=== PATIENT | female | born 1985 | race Caucasian/White ===

== ENCOUNTER 2019-08-22 19:21 | Inpatient (IN) | payer MEDICAID ==
[~2019-08-22] VITALS: Ht 157.5 cm; Wt 68.0 kg
[2019-08-22 19:28] VITALS: BP 248/169
--- NOTE | 2019-08-22 19:32 | NUR ---
PT TAKEN TO BED 3
--- NOTE | 2019-08-22 19:38 | NUR ---
ER EVALUATING PATIENT
[2019-08-22] MEDS ORDERED: MORPHINE SULFATE 2 MG/ML SYR IVP ONE (19:45)
[2019-08-22] MEDS ORDERED: cloNIDine 0.1 MG TAB PO ONE ×2 (19:45→22:50)
[2019-08-22] MEDS ORDERED: NACL 0.9% 1,000 ML IV ONE (19:45)
--- NOTE | 2019-08-22 19:50 | NUR ---
33 Y/O FEMALE PAIN TO LEFT SIDE SINCE THIS AM, PT DENIES TRAUMA OR INJURY, STATES NO BLEEDING OR D/C. PATIENT STATES THAT SHE HAD JAW PAIN SINCE THIS MORNING AND STATES " I THINK THAT IT COULD BE FROM A BROKEN TOOTH". PAIN IS A 10/10 ACUTE PAIN. PATIENT EXHIBITS FACIAL GRIMACING. BLOOD PRESSURE IS 248/169. ER MD AWARE OF STATUS. PATIENT PLACED ON MONITOR. SIDE RAILSX2/ PMH HTN NKDA RX:NONE
--- NOTE | 2019-08-22 19:54 | NUR ---
LAB AT BEDSIDE.
--- NOTE | 2019-08-22 19:59 | NUR ---
Blood drawn by myself and handed to corporate account executive.
--- NOTE | 2019-08-22 20:00 | NUR ---
certified ophthalmic technologist at bedside.
[2019-08-22 20:05] LABS: BASOPHILS # (AUTO) 0.1 K/uL (0.00-0.22); BASOPHILS % (AUTO) 0.7 % (0.0-2.0); EOSINOPHILS # (AUTO) 0.1 K/uL (0-0.4); EOSINOPHILS % (AUTO) 0.9 % (0.0-4.0); HEMATOCRIT 46.1 % (36-48); HEMOGLOBIN 15.3 g/dL (12.0-16.0); LYMPHOCYTES # (AUTO) 1.5 K/uL (2.5-16.5); LYMPHOCYTES % (AUTO) 15.5 % (20.5-51.1); MEAN CORPUSCULAR HEMOGLOBIN 27 pg (27-31); MEAN CORPUSCULAR HGB CONC 33 g/dL (33-37); MEAN CORPUSCULAR VOLUME 81.8 fL (80-94); MONOCYTES # (AUTO) 0.5 K/uL (0.8-1.0); MONOCYTES % (AUTO) 4.8 % (1.7-9.3); NEUTROPHILS # (AUTO) 7.7 K/uL (1.8-7.7); NEUTROPHILS % (AUTO) 78.1 % (42.2-75.2); PLATELET COUNT (AUTO) 345 K/uL (140-450); RED BLOOD CELL COUNT(AUTO) 5.63 MIL/uL (4.20-5.40); RED CELL DISTRIBUTION WIDTH 14.5 % (11.6-13.7); WHITE BLOOD COUNT (AUTO) 9.9 K/uL (4.8-10.8)
--- NOTE | 2019-08-22 20:29 | NUR ---
Marguerite deutsch in [facility] - 08/22/19 at 2030 by KINSEY PATIENT IS SLEEPING AT THIS TIME. FRIEND IS AT [facility].
--- NOTE | 2019-08-22 20:30 | NUR ---
PATIENT IS SLEEPING AT THIS TIME. FRIEND IS AT BEDSIDE.
[2019-08-22 20:57] LABS: ALBUMIN 4.2 g/dL (3.4-5.0); ANION GAP 12.4 (8-16); CARBON DIOXIDE 30.3 mmol/L (21-32); CREATININE 0.8 mg/dL (0.6-1.3); TOTAL BILIRUBIN 0.3 mg/dL (0.0-1.0)
[2019-08-22 20:58] LABS: POTASSIUM 2.7 mmol/L (3.5-5.1)
[2019-08-22] MEDS ORDERED: METOPROLOL 5 MG/5 ML VIAL IVP ONE (21:15)
[2019-08-22] MEDS ORDERED: ASPIRIN 81 MG TAB.CHEW PO ONE (21:15)
[2019-08-22] MEDS ORDERED: POTASSIUM CHLORIDE 10 MEQ TABER PO ONE (21:15)
[2019-08-22] MEDS ORDERED: NACL 0.9% 1,000 ML IV SCH (21:19)
[2019-08-22] MEDS ORDERED: HYDROcodone/APAP 5/325 MG 1 TAB TAB PO PRN (21:20)
[2019-08-22] MEDS ORDERED: DOCUSATE SODIUM 100 MG GELCAP PO PRN (21:20)
[2019-08-22] MEDS ORDERED: ONDANSETRON 4 MG/2 ML VIAL IM/IVP PRN (21:20)
[2019-08-22] MEDS ORDERED: ZOLPIDEM 5 MG TAB PO PRN (21:20)
[2019-08-22] MEDS ORDERED: LORazepam 2 MG/ML VIAL IM/IVP PRN (21:20)
[2019-08-22] MEDS ORDERED: ACETAMINOPHEN 325 MG TAB PO PRN (21:20)
[2019-08-22] MEDS ORDERED: MORPHINE SULFATE 2 MG/ML SYR IVP PRN (21:20)
[2019-08-22] MEDS ORDERED: hydrALAZINE 20 MG/ML VIAL IVP ONE ×2 (21:45→23:35)
--- NOTE | 2019-08-22 21:49 | NUR ---
PATIENT TAKEN TO CT.
--- NOTE | 2019-08-22 21:49 | NUR ---
PT TAKEN TO CT
[2019-08-22] MEDS ORDERED: NITROGLYCERIN 0.4 MG TAB SL PRN (21:50)
[2019-08-22 21:53] LABS: PROTHROMBIN TIME 8.9 secs (10.8-13.4)
[2019-08-22 21:54] LABS: CHOL/HDL RATIO 3.3 (1-4.5); MAGNESIUM 1.8 mg/dL (1.8-2.4); PHOSPHORUS 2.1 mg/dL (2.5-4.9); THYROID STIMULATING HORMONE 0.49 uIU/mL (0.34-3.74)
--- NOTE | 2019-08-22 22:04 | NUR ---
Dr. Patel examining patient.
--- NOTE | 2019-08-22 22:08 | NUR ---
PULLED FROM FORREST APRESOLINE 20MG/1ML. ADMINISTERED APRESOLINE 10MG/0.5ML. Addendum: 08/22/19 at 2211 by KINSEY PT'S BLOOD PRESSURE IS 181/106; HR IS 90
[2019-08-22] MEDS ORDERED: amLODIPine 5 MG TAB PO SCH (22:45)
[2019-08-22] MEDS ORDERED: SODIUM PHOS / POTASSIUM PHOS 1 PKT PDR PO SCH (23:00)
[2019-08-22] MEDS ORDERED: MECLIZINE 25 MG TAB PO PRN (23:10)
--- NOTE | 2019-08-22 23:22 | NUR ---
ULTRASOUND AT BEDSIDE.
[2019-08-22 23:37] LABS: APPEARANCE,URINE CLEAR (CLEAR); BILIRUBIN,URINE NEGATIVE (NEGATIVE); BLOOD, URINE NEGATIVE (NEGATIVE); COLOR,URINE YELLOW (YELLOW); LEUKOCYTE ESTERASE ,URINE NEGATIVE (NEGATIVE); NITRITE, URINE NEGATIVE (NEGATIVE); PH,URINE 7.5 (5.0-9.0); UGLUCOSE NEGATIVE (NEGATIVE)
--- NOTE | 2019-08-22 23:37 | NUR ---
B/P: 186/115; HR 84.NOTIFIED MD OF BLOOD PRESSURE READING.
[2019-08-22 23:44] LABS: BARBITURATE, URINE NEG. ng/ml (NEG <=200); BENZODIAZEPINE, URINE NEG. ng/mL (NEG <=200); CANNABINOID, URINE NEG. ng/mL (NEG <=50); COCAINE, URINE NEG. ng/mL (NEG <=300); OPIATE, URINE POS. ng/mL (NEG <=2000); PHENCYCLIDINE SCREEN,URINE NEG. ng/mL (NEG <=25)
[2019-08-22 23:53] LABS: RBC,URINE 0-5 /HPF (0-5); WBC,URINE 0-5 /HPF (0-5)
[2019-08-22 23:54] LABS: COARSE GRANULAR CASTS,URINE 0-1 /LPF (None Seen)
--- NOTE | 2019-08-22 23:54 | NUR ---
PULLED 20MG/1ML FROM PYXIS. ADMINISTERED 10MG/0.5ML PER DOCTOR'S ORDER FOR BLOOD PRESSURE OF 186/115; HR87.
[2019-08-23] VITALS (9 sets, daily range): BP systolic 102–159; BP diastolic 47–95
--- NOTE | 2019-08-23 | NUR ---
Patient will be admitted to care of DR. CORONA. Admited to TELE. Will go to [id number]. Belongings list completed. Report to CAROLYN SLOAN .
--- NOTE | 2019-08-23 | NUR ---
RECEIVED PT FROM ER NURSE, ANDREINA. PT CAME IN [facility] AND AMBULATED TO [facility] [place] [facility]. AT BEDSIDE. NO S/S OF SOB NOTED ON ROOM AIR. IV SITE ON LAC 20G, PATENT, INTACT AND ASYMPTOMATIC. VS CHECKED, MRSA SWAB DONE. BOARD UPDATED, ALL SAFETY MEASUREMENT ARE MET. DX: HYPOKALEMIA, HYPERTENSION. ORIENT ROOM TO PT. BED IN LOW POSITION, CALL LIGHT WITHIN REACH.
--- NOTE | 2019-08-23 00:44 | NUR ---
GIVEN AMLODIPINE AND NEUTRA-PHOS MD ORDERED. PT TOLERATED WELL.
[2019-08-23] MEDS ORDERED: POTASSIUM CHLORIDE 10 MEQ TABER PO SCH (00:50)
--- NOTE | 2019-08-23 01:21 | NUR ---
GIVEN K VLADIMIR MD ORDERED. PT TOLERATED WELL. WILL CONTINUE TO MONITOR.
--- NOTE | 2019-08-23 03:02 | NUR ---
PT SLEEPING IN BED. NO ACUTE DISTRESS NOTED.
--- NOTE | 2019-08-23 05:15 | NUR ---
PT SLEEPING IN BED. NO ACUTE DISTRESS NOTED.
--- NOTE | 2019-08-23 06:15 | NUR ---
BP 124/81 NOTED IN SUPINE POSITION.
--- NOTE | 2019-08-23 06:20 | NUR ---
BP 132/82 NOTED IN SITTING POSITION.
--- NOTE | 2019-08-23 06:25 | NUR ---
BP 102/54 NOTED IN STANDING POSITION.
[2019-08-23 06:33] LABS: ANION GAP 9.5 (8-16); CARBON DIOXIDE 32.1 mmol/L (21-32); CREATININE 0.7 mg/dL (0.6-1.3); POTASSIUM 3.6 mmol/L (3.5-5.1)
[2019-08-23 06:44] LABS: MAGNESIUM 1.8 mg/dL (1.8-2.4); PHOSPHORUS 3.5 mg/dL (2.5-4.9)
[2019-08-23 06:47] LABS: BASOPHILS % (AUTO) 0.2 % (0.0-2.0); EOSINOPHILS # (AUTO) 0.1 K/uL (0-0.4); HEMATOCRIT 44.5 % (36-48); HEMOGLOBIN 14.5 g/dL (12.0-16.0); LYMPHOCYTES # (AUTO) 2.7 K/uL (2.5-16.5); LYMPHOCYTES % (AUTO) 29.8 % (20.5-51.1); MEAN CORPUSCULAR HEMOGLOBIN 27 pg (27-31); MEAN CORPUSCULAR HGB CONC 33 g/dL (33-37); MEAN CORPUSCULAR VOLUME 82.8 fL (80-94); MONOCYTES # (AUTO) 0.6 K/uL (0.8-1.0); MONOCYTES % (AUTO) 6.4 % (1.7-9.3); NEUTROPHILS # (AUTO) 5.6 K/uL (1.8-7.7); NEUTROPHILS % (AUTO) 62.6 % (42.2-75.2); PLATELET COUNT (AUTO) 315 K/uL (140-450); RED BLOOD CELL COUNT(AUTO) 5.38 MIL/uL (4.20-5.40); RED CELL DISTRIBUTION WIDTH 14.2 % (11.6-13.7); WHITE BLOOD COUNT (AUTO) 8.9 K/uL (4.8-10.8)
--- NOTE | 2019-08-23 06:48 | NUR ---
PATIENT HAS BEEN SCREENED AND CATEGORIZED HIGH NUTRITION RISK. PATIENT WILL BE SEEN WITHIN 1-2 DAYS OF ADMISSION. 08/23/19-08/24/19 AIDE TIPTON MS, RDN Addendum: 08/23/19 at [address] Correction: PATIENT HAS BEEN SCREENED AND CATEGORIZED MODERATE NUTRITION RISK. PATIENT WILL BE SEEN WITHIN 3-5 DAYS OF ADMISSION. 08/24/19-08/26/19 AIDE TIPTON MS, RDN
--- NOTE | 2019-08-23 08:42 | NUR ---
RECEIVED REPORT FROM CAROLYN TEAGUE. PATIENT ALERT AWAKE ORIENTED X4,NOT IN ANY DISTRESS NOTED. VITALS STABLE.DENIES PAIN AT THIS TIME. ON MONITOR SHOWS SR, NO ECTOPY NOTED. HEPLOCK DRY AND INTACT. NEEDS ATTENDED. WILL CONTINUE TO MONITOR.
[2019-08-23] MEDS ORDERED: LISINOPRIL 5 MG TAB PO SCH (09:00)
[2019-08-23] MEDS: ASPIRIN 81 MG TAB.CHEW PO SCH (09:35)
[2019-08-23] MEDS: METOPROLOL 25 MG TAB PO SCH ×2 (09:35→20:51)
[2019-08-23] MEDS: amLODIPine 5 MG TAB PO SCH (09:36)
--- NOTE | 2019-08-23 10:00 | NUR ---
PATIENT RESTING IN BED, NO C/O PAIN AND DIZZINESS. WILL CONTINUE TO MONITOR.
--- NOTE | 2019-08-23 12:00 | NUR ---
VITALS TAKEN, STABLE, DENIES ANY PAIN AT THIS TIME. WILL CONTINUE TO MONITOR.
--- NOTE | 2019-08-23 15:00 | NUR ---
SEEN BY DR. VELAZQUEZ, NO NEW ORDER MADE.
--- NOTE | 2019-08-23 18:41 | NUR ---
RESTING IN BED, AT BEDSIDE AND GAVE INFORMATION REGARDING PLAN OF CARE, EXPLAINED TO THE TRANSLATED BY TR LEON AND VERBALIZED UNDERSTANDING. WILL ENDORSE TO THE NEXT SHIFT FOR CONTINUITY OF CARE.
--- NOTE | 2019-08-23 19:30 | NUR ---
RECEIVED FROM AM RN IN BED AWAKE AND TALKING TO BOYFRIEND. TELEMETRY MONITORING. NO COMPLAINTS DONE. DENIES ANY PAIN. ABLE TO VERBALIZE WELL WITH ME AND MALE VISITOR. CALL LIGHT WITH IN REACH. CARE PLANS FOR THE NIGHT DISCUSSED WITH HER. ENCOURAGED TO USE CALL LIGHT FOR ANY HELP SHE MAY NEED OR IF SHE HAS ANY PAIN. ROM X 4. CLEAR SPEECH.
[2019-08-23] MEDS ORDERED: ATORVASTATIN 20 MG TAB PO SCH (21:00)
--- NOTE | 2019-08-23 21:08 | NUR ---
PARTNER LEFT AND PT. TRYING TO SLEEP NOW. RE-ORIENTED TO CALL LIGHT USE FOR ANY HELP SHE MAY NEED. A/O X 4. NO COMPLAINTS DONE. ASKED IF THERE IS ANYTHING I CAN DO FOR HER BEFORE SHE GOES TO SLEEP. "NO, I AM OK"
[2019-08-24] VITALS (7 sets, daily range): BP systolic 132–153; BP diastolic 80–98
--- NOTE | 2019-08-24 | NUR ---
SLEEPING. NO RESTLESSNESS. WAKES UP EASILY WHEN TOUCHED. DENIES ANY PAIN.
--- NOTE | 2019-08-24 02:30 | NUR ---
SLEEPING. NO RESTLESSNESS. TELEMETRY MONITORING. CALL LIGHT WITH IN REACH.
--- NOTE | 2019-08-24 05:23 | NUR ---
SLEEPING WELL THIS SHIFT.
--- NOTE | 2019-08-24 07:08 | NUR ---
PT. WOKE UP AND WENT RESTROOM. STANDBY ASSIST. NO COMPLAINTS OF ANY PAIN DONE OR ANY NUMBNESS WITH JAW. CALL LIGHT WITH IN REACH. PT. SLEPT WELL THIS SHIFT.
[2019-08-24 07:15] LABS: BASOPHILS % (AUTO) 0.3 % (0.0-2.0); EOSINOPHILS # (AUTO) 0.2 K/uL (0-0.4); EOSINOPHILS % (AUTO) 2.3 % (0.0-4.0); HEMOGLOBIN 14.2 g/dL (12.0-16.0); LYMPHOCYTES % (AUTO) 34.7 % (20.5-51.1); MEAN CORPUSCULAR HEMOGLOBIN 27 pg (27-31); MEAN CORPUSCULAR HGB CONC 33 g/dL (33-37); MEAN CORPUSCULAR VOLUME 82.7 fL (80-94); MONOCYTES # (AUTO) 0.6 K/uL (0.8-1.0); MONOCYTES % (AUTO) 7.2 % (1.7-9.3); NEUTROPHILS # (AUTO) 4.8 K/uL (1.8-7.7); NEUTROPHILS % (AUTO) 55.5 % (42.2-75.2); PLATELET COUNT (AUTO) 287 K/uL (140-450); RED CELL DISTRIBUTION WIDTH 14.1 % (11.6-13.7); WHITE BLOOD COUNT (AUTO) 8.7 K/uL (4.8-10.8)
--- NOTE | 2019-08-24 07:56 | NUR ---
RECEIVED REPORT FROM CAROLYN JIMENEZ AT BEDSIDE. PATIENT ALERT AWAKE ORIENTED X4, NOT IN ANY DISTRESS NOTED. HEPLOCK DRY AND INTACT. DENIES PAIN AT THIS TIME. INITIAL ASSESSMENT INITIATED. CALL LIGHT WITHIN REACH. SEEN BY DR. DR. CORONA TODAY AND DISCUSSED PLAN OF CARE. WILL CONTINUE TO MONITOR.
[2019-08-24 08:22] LABS: ANION GAP 10.7 (8-16); CARBON DIOXIDE 30.6 mmol/L (21-32); CREATININE 0.8 mg/dL (0.6-1.3); POTASSIUM 3.3 mmol/L (3.5-5.1)
[2019-08-24] MEDS: ASPIRIN 81 MG TAB.CHEW PO SCH (09:52)
[2019-08-24] MEDS: amLODIPine 5 MG TAB PO SCH (09:53)
[2019-08-24] MEDS: METOPROLOL 25 MG TAB PO SCH (09:54)
--- NOTE | 2019-08-24 09:58 | NUR ---
DISCUSSED WITH PATIENT HER DIET, ENCOURAGED TO EAT GOOD FOOD, PATIENT AND FAMILY AT BEDSIDE.
[2019-08-24] MEDS ORDERED: ATOR20TA40 PO (10:24)
[2019-08-24] MEDS ORDERED: AMLO5TAB6 PO (10:24)
[2019-08-24] MEDS ORDERED: METO25TA PO (10:24)
[2019-08-24] MEDS ORDERED: POTASSIUM CHLORIDE 10 MEQ TABER PO SCH (10:30)
--- NOTE | 2019-08-24 13:17 | NUR ---
PATIENT TESTING IN BED, NO C/O PAIN, AT BEDSIDE. WILL CONTINUE TO MONITOR.
--- NOTE | 2019-08-24 15:00 | NUR ---
DC PATIENT WITH DC INSTRUCTION AND PRESCRIPTION GIVEN AND VERBALIZED UNDERSTANDING. ALL QUESTIONED ANSWERED BEFORE DC. ACCOMPANIED BY AND DAUGHTER WHO SPEAKS SPANISH AND VERBALIZED UNDERSTANDING. IN STABLE CONDITION.
== END 2019-08-24 15:00 | disposition home or self-care (01) | DRG 812 ==
LOC: MED 19:21 → MTU 21:19
PROVIDERS: ADMIT General Practice; ATTEND General Practice
DX: T43.621A Poisoning by amphetamines, accidental (unintentional), initial encounter (principal); E83.39 Other disorders of phosphorus metabolism; F15.10 Other stimulant abuse, uncomplicated; G90.8 Other disorders of autonomic nervous system; I16.1 Hypertensive emergency; E87.6 Hypokalemia; F17.210 Nicotine dependence, cigarettes, uncomplicated; F19.10 Other psychoactive substance abuse, uncomplicated; I10 Essential (primary) hypertension; E78.5 Hyperlipidemia, unspecified; Z91.19 Patient's noncompliance with other medical treatment and regimen; Z90.49 Acquired absence of other specified parts of digestive tract; Y92.89 Other specified places as the place of occurrence of the external cause
CPT/HCPCS: 36415; 70450; 71045; 80048; 80053; 80305; 81001; 81025; 83036; 83690; 83735; 83835; 84100; 84134; 84443; 84484; 84702; 85025; 85610; 85730; 87081; 93005; 93880; 96361; 96374; 96375; 96376; 99285; J0360; J2270; J3490; Q0092